=== PATIENT | male | born 1960 | race Caucasian/White ===

== ENCOUNTER 2021-09-30 21:20 | Emergency (ER) | payer OTHER ==
--- OUTSIDE RECORDS SUMMARY | 2021-09-30 21:22 | XMS REPORT | Continuity of Care Document ---
:1960 Author Organization [facility] Address [address] [place] [address] Care Team Providers Name Role Phone GEE KAUFFMAN Attending Clinician Unavailable MAIRA REYNOLDS Attending Clinician Unavailable JASPER REA Attending Clinician Unavailable AKIL DEUTSCH Attending Clinician Unavailable MARIA FOSTER Attending Clinician Unavailable JULIETH ROBERT Attending Clinician Unavailable Problems This patient has no known problems. Allergies, Adverse Reactions, Alerts This patient has no known allergies or adverse reactions. Medications This patient has no known medications. Procedures This patient has no known procedures. Encounters Start End Encounter Admission Attending Care Care Encounter Source Date/Time Date/Time Type Type Clinicians Facility Department ID 2021-09-27 2021-09-27 Outpatient [facility] [id number] [place] 00:00:00 00:00:[address] 2021-09-16 2021-09-16 Outpatient DALY [facility] [id number] [place] 00:00:00 00:00:00 GEE [address] 2021-09-13 2021-09-13 Outpatient [facility] [id number] [place] 00:00:00 00:00:[address] 2021-08-30 2021-08-30 Outpatient [facility] [id number] [place] 00:00:00 00:00:[address] 2021-07-18 2021-07-18 Outpatient RODOLFO [facility] [id number] [place] 00:00:00 00:00:00 MAIRA [address] 2021-06-15 2021-06-15 Outpatient JASPER REA [facility] [id number] [place] 00:00:00 00:00:[address] 2021-05-26 2021-05-26 Outpatient [facility] [id number] [place] 00:00:00 00:00:[address] 2021-05-25 2021-05-25 Outpatient KAUFFMAN, [facility] [id number] [place] 00:00:00 00:00:00 WINDSEN [address] 2021-05-17 2021-05-17 Outpatient KAUFFMAN, [facility] [id number] [place] 00:00:00 00:00:00 WINDSEN [address] 2021-05-16 2021-05-16 Outpatient REYNOLDS, [facility] [id number] [place] 00:00:00 00:00:00 MAIRA [address] 2021-05-10 2021-05-10 Outpatient KAUFFMAN, [facility] [id number] [place] 00:00:00 00:00:00 WINDSEN [address] 2021-04-13 2021-04-13 Outpatient REYNOLDS, [facility] [id number] [place] 00:00:00 00:00:00 MAIRA [address] 2021-02-14 2021-02-14 Outpatient KAUFFMAN, [facility] [id number] [place] 00:00:00 00:00:00 WINDSEN [address] 2021-01-18 2021-01-18 Emergency NOFFSINGER, [facility] [id number] [place] 00:00:00 00:00:00 AKIL [address] 2020-06-08 2020-06-08 Outpatient REYNOLDS, [facility] [id number] [place] 00:00:00 00:00:00 MAIRA [address] 2019-12-15 2019-12-15 Outpatient REYNOLDS, [facility] [id number] [place] 00:00:00 00:00:00 MAIRA [address] 2019-10-27 2019-10-27 Outpatient REYNOLDS, [facility] [id number] [place] 00:00:00 00:00:00 MAIRA [address] 2019-08-20 2019-08-20 Outpatient FOSTER, [facility] [id number] [place] 00:00:00 00:00:00 MARIA [address] 2019-05-27 2019-05-27 Outpatient ROBERT, [facility] [id number] [place] 00:00:00 00:00:00 JULIETH [address] 2019-05-27 2019-05-27 Outpatient ROBERT, [facility] [id number] [place] 00:00:00 00:00:00 JULIETH [address] 2019-04-23 2019-04-23 Outpatient RODOLFO, [facility] [id number] [place] 00:00:00 00:00:00 MAIRA [address] 2019-04-23 2019-04-23 Outpatient RODOLFO [facility] [id number] [place] 00:00:00 00:00:00 MAIRA [address] 2019-03-13 2019-03-13 Outpatient RODOLFO, [facility] [id number] [place] 00:00:00 00:00:00 MAIRA [address] 2019-03-13 2019-03-13 Outpatient RODOLFO [facility] [id number] [place] 00:00:00 00:00:00 MAIRA [address] Results This patient has no known results.
[2021-09-30 22:27] LABS: Absolute Lymphocytes (CBC) 1.7 K/uL (0.7-4.9); Hematocrit 45.4 % (39.6-49.0); Lymphocytes % 9.5 % (15.3-44.8); MPV 8.5 fL (7.6-11.3)
[2021-09-30 22:42] LABS: Albumin 3.6 g/dL (3.4-5.0); Bilirubin Total 0.5 mg/dL (0.2-1.0); Protein, Total 7.4 g/dL (6.4-8.2)
[2021-09-30 22:43] LABS: Potassium 5.4 mmol/L (3.5-5.1)
--- NOTE | 2021-09-30 23:38 | EDPHYS ---
Physician Documentation [facility] Name: Wally Ann Age: 61 yrs Sex: Male : 1960 Arrival Date: 09/30/2021 Time: 21:24 Bed 5 Private MD: ED Physician Christian Landaverde HPI: 09/30 21:24 This 61 yrs old Male presents to ER via EMS with complaints of syncope. ms3 21:24 The patient has experienced syncope, lost consciousness. Onset: The symptoms/episode ms3 began/occurred just prior to arrival. Duration: This was a single episode, that lasted 2 second(s). Associated injury: The patient did not suffer any apparent associated injury. Associated signs and symptoms: Pertinent positives: dizziness, Pertinent negatives: abdominal pain, chest pain, diarrhea, headache. 61-year-old male with past medical history of diabetes, hypertension, hypercholesterolemia presents via EMS for dizziness, sweating, vomiting x1, syncopal episode that lasted 1 to 2 seconds. Patient states he began sweating and he went upstairs and sat in his chair and vomited x1. Patient's states his eyes then rolled back for 1 to 2 seconds. Patient states he did eat a schedule as he was afraid his sugar was low. Patient denies chest pain, patient denies shortness of breath. Patient states he has chronic back pain and his pain is unchanged.. Historical: - Allergies: 21:26 morphine; sm5 - Home Meds: 21:26 Vascepa 1 gram oral cap 2 caps 2 times per day [Active]; venlafaxine 150 mg oral cp24 sm5 [Active]; felodipine 5 mg oral Tb24 1 tab once daily [Active]; metoprolol tartrate 100 mg Oral tab 1 tab once daily [Active]; olmesartan-hydrochlorothiazide 40-12.5 mg oral tab 1 tab once daily [Active]; Humulin R Regular U-100 Insuln 100 unit/mL soln [Active]; rosuvastatin 20 mg oral tab 1 tab once daily [Active]; fenofibrate 200mg oral [Active]; - PMHx: 21:29 Diabetes mellitus; Hypertensive disorder; Hypercholesterolemia; sm5 - PSHx: 21:29 left kidney tumor removal; Cholecystectomy; sm5 - Immunization history:: Client reports receiving the 2nd dose of the Covid vaccine, Flu vaccine is up to date. - Social history:: Smoking status: Patient denies any tobacco usage or history of. ROS: 21:24 Constitutional: Negative for fever, and chills. Eyes: Negative for injury, pain, ms3 redness, and discharge, Neck: Negative for injury, pain, and swelling, Cardiovascular: Negative for chest pain, and palpitations. Respiratory: Negative for shortness of breath, cough, wheezing, and pleuritic chest pain, Abdomen/GI: Negative for abdominal pain, nausea, vomiting, diarrhea, and constipation, Skin: Negative for injury, rash, and discoloration, Neuro: Negative for headache, weakness, numbness, tingling. 21:24 MS/extremity: Positive for Back pain. 21:24 All other systems are negative. Exam: 21:24 Constitutional: This is a well developed, well nourished patient who is awake, alert, ms3 and in no acute distress. Head/Face: Normocephalic, atraumatic. Eyes: Pupils equal round and reactive to light, extra-ocular motions intact. Lids and lashes normal. Conjunctiva and sclera are non-icteric and not injected. Periorbital areas with no swelling, redness, or edema. Neck: Trachea midline, no cervical lymphadenopathy. Supple, full range of motion without nuchal rigidity, or vertebral point tenderness. No Meningismus. Chest/axilla: Normal chest wall appearance and motion. Nontender with no deformity. Cardiovascular: Regular rate and rhythm with a normal S1 and S2. No gallops, murmurs, or rubs. Normal PMI, no JVD. No pulse deficits. Respiratory: Lungs have equal breath sounds bilaterally, clear to auscultation and percussion. No rales, rhonchi or wheezes noted. No increased work of breathing, no retractions or nasal flaring. Abdomen/GI: Soft, non-tender, with normal bowel sounds. No distension or tympany. No guarding or rebound. No evidence of tenderness throughout. Back: No spinal tenderness. No costovertebral tenderness. Full range of motion. Skin: Warm, dry with normal turgor. Normal color with no rashes, no lesions, and no evidence of cellulitis. Neuro: Awake and alert, GCS 15, oriented to person, place, time, and situation. Cranial nerves II-XII grossly intact. Motor strength 5/5 in all extremities. Sensory grossly intact. Cerebellar exam normal. Normal gait. Psych: Awake, alert, with orientation to person, place and time. Behavior, mood, and affect are within normal limits. 21:24 Musculoskeletal/extremity: Extremities: 21:24 Musculoskeletal/extremity: No midline back tenderness, paraspinal mm spasm. 22:17 ECG was reviewed by the Attending Physician. ms3 Vital Signs: 21:24 BP 109 / 66; Pulse 73; Resp 14; Temp 97.5(O); Pulse Ox 95% on R/A; Weight 96.16 kg; sm5 Height 5 ft. 6 in. (167.64 cm); Pain 0/10; 22:26 BP 123 / 70; Pulse 65; Resp 16; Pulse Ox 96% on R/A; sm5 22:59 BP 124 / 71; Pulse 66; Resp 18; Pulse Ox 96% on R/A; st1 23:11 BP 138 / 68; Pulse 68; Resp 16; Pulse Ox 96% on R/A; st1 21:24 Body Mass Index 34.22 (96.16 kg, 167.64 cm) 5 MDM: 21:24 Differential Diagnosis: cardiac arrhythmia, Hypoglycemia vs arrhythmia. Data reviewed: ms3 vital signs, nurses notes, lab test result(s), EKG, radiologic studies. Counseling: I had a detailed discussion with the patient and/or guardian regarding: the historical points, exam findings, and any diagnostic results supporting the discharge/admit diagnosis, lab results, radiology results, the need for outpatient follow up, to return to the emergency department if symptoms worsen or persist or if there are any questions or concerns that arise at home. ED course: Discussed observation with patient and his . Patient declines observation in hospital. Discussed risks of or disability with patient and his . Patient understands accepts risk. Patient is alert and oriented x4, in no apparent distress, nontoxic-appearing, ambulatory in emergency department. Patient to follow-up with his primary care physician on Sunday. She understands and agrees with plan. All questions were answered. Return precautions discussed include worsening symptoms, or any other concerns.. 21:48 Patient medically screened. ms3 09/30 21:47 Order name: CBC with Diff; Complete Time: 22:57 ms3 09/30 21:47 Order name: CPK; Complete Time: 22:57 ms3 09/30 21:47 Order name: Lipase; Complete Time: 22:57 ms3 09/30 21:47 Order name: Magnesium; Complete Time: 22:57 ms3 09/30 21:47 Order name: CMP; Complete Time: 22:57 ms3 09/30 22:57 Order name: Troponin High Sensitivity; Complete Time: 23:30 ms3 09/30 21:47 Order name: EKG; Complete Time: 21:48 ms3 09/30 21:47 Order name: Cardiac monitoring; Complete Time: 21:52 ms3 09/30 21:47 Order name: EKG - Nurse/Tech; Complete Time: 22:24 ms3 09/30 21:47 Order name: IV Saline Lock; Complete Time: 21:52 ms3 09/30 21:47 Order name: Labs collected and sent; Complete Time: 22:24 ms3 09/30 21:47 Order name: NPO; Complete Time: 22:10 ms3 09/30 21:47 Order name: O2 Per Protocol; Complete Time: 22:10 ms3 09/30 21:47 Order name: O2 Sat Monitoring; Complete Time: 22:10 ms3 EC:17 Rate is 62 beats/min. Rhythm is regular. QRS [place] is Normal. Clinical impression: Right ms3 bundle branch block. Interpreted by me. Administered Medications: No medications were administered Disposition Summary: 09/30/21 23:37 Discharge Ordered Location: Home ms3 Problem: new ms3 Symptoms: have improved ms3 Condition: Stable ms3 Diagnosis - Syncope ms3 - Leukocytosis ms3 - renal insufficiency ms3 - Hyperglycemia, unspecified ms3 Followup: ms3 - With: Private Physician - When: 1 - 2 days - Reason: Discharge Instructions: - Discharge Summary Sheet ms3 - Hyperglycemia ms3 - Syncope ms3 Forms: - Medication Reconciliation Form ms3 - Thank You Letter ms3 - Antibiotic Education ms3 - Prescription Opioid Use ms3 Signatures: Dispatcher [employer] Christian Noguera DO DO ms3 Bonita Khoury, RN RN sm5
--- NOTE | 2021-09-30 23:38 | ER ---
Nurse's Notes [facility] Name: Wally Ann Age: 61 yrs Sex: Male : 1960 Arrival Date: 09/30/2021 Time: 21:24 Bed 5 Private MD: Diagnosis: Syncope;Leukocytosis;renal insufficiency;Hyperglycemia, unspecified Presentation: 09/30 21:24 Chief complaint: EMS states: pt started feeling nauseas at home, family witnessed sm5 syncopal episode lasting 30 seconds, denies fall. pt's initial bp for ems was 90/50. ems gave 4mg of zofran, 1000mg of tyenol. pt states he started a keto diet last week and lost 8lbs in 4 days. Coronavirus screen: Vaccine status: Patient reports receiving the 2nd dose of the covid vaccine. Ebola Screen: No symptoms or risks identified at this time. Initial Sepsis Screen: Does the patient meet any 2 criteria? No. Patient's initial sepsis screen is negative. Does the patient have a suspected source of infection? No. Patient's initial sepsis screen is negative. Risk Assessment: Do you want to hurt yourself or someone else? Patient reports no desire to harm self or others. Onset of symptoms was September 30, 2021. 21:24 Method Of Arrival: EMS: [place] [address] 21:24 Acuity: SUNITA 3 sm5 Triage Assessment: 21:31 General: Appears in no apparent distress. Behavior is cooperative, appropriate for age. sm5 Pain: Denies pain. Neuro: No deficits noted. Level of Consciousness is awake, alert, obeys commands, Oriented to person, place, time, situation. Cardiovascular: No deficits noted. Capillary refill < 3 seconds Patient's skin is warm and dry. Respiratory: No deficits noted. Airway is patent Trachea midline Respiratory effort is even, unlabored. GI: Abdomen is round Reports vomiting. Historical: - Allergies: 21:26 morphine; sm5 - Home Meds: 21:26 Vascepa 1 gram oral cap 2 caps 2 times per day [Active]; venlafaxine 150 mg oral cp24 sm5 [Active]; felodipine 5 mg oral Tb24 1 tab once daily [Active]; metoprolol tartrate 100 mg Oral tab 1 tab once daily [Active]; olmesartan-hydrochlorothiazide 40-12.5 mg oral tab 1 tab once daily [Active]; Humulin R Regular U-100 Insuln 100 unit/mL soln [Active]; rosuvastatin 20 mg oral tab 1 tab once daily [Active]; fenofibrate 200mg oral [Active]; - PMHx: 21:29 Diabetes mellitus; Hypertensive disorder; Hypercholesterolemia; sm5 - PSHx: 21:29 left kidney tumor removal; Cholecystectomy; 5 - Immunization history:: Client reports receiving the 2nd dose of the Covid vaccine, Flu vaccine is up to date. - Social history:: Smoking status: Patient denies any tobacco usage or history of. Screenin:30 Abuse screen: Denies threats or abuse. Denies injuries from another. Nutritional [facility] screening: No deficits noted. Tuberculosis screening: No symptoms or risk factors identified. Fall Risk No fall in past 12 months (0 pts). No secondary diagnosis (0 pts). IV access (20 points). Ambulatory Aid- None/Bed Rest/Nurse Assist (0 pts). Gait- Normal/Bed Rest/Wheelchair (0 pts) Mental Status- Oriented to own ability (0 pts). Total Mason Fall Scale indicates No Risk (0-24 pts). Assessment: 21:30 Reassessment: see triage assessment. [facility] 22:26 Reassessment: No changes from previously documented assessment. Patient and/or family [facility] updated on plan of care and expected duration. Pain level reassessed. 23:45 Reassessment: No changes from previously documented assessment. Patient states feeling 5 better. Vital Signs: 21:24 BP 109 / 66; Pulse 73; Resp 14; Temp 97.5(O); Pulse Ox 95% on R/A; Weight 96.16 kg; sm5 Height 5 ft. 6 in. (167.64 cm); Pain 0/10; 22:26 BP 123 / 70; Pulse 65; Resp 16; Pulse Ox 96% on R/A; sm5 22:59 BP 124 / 71; Pulse 66; Resp 18; Pulse Ox 96% on R/A; st1 23:11 BP 138 / 68; Pulse 68; Resp 16; Pulse Ox 96% on R/A; st1 21:24 Body Mass Index 34.22 (96.16 kg, 167.64 cm) [facility] ED Course: 21:24 Patient arrived in ED. sm5 21:26 Triage completed. 5 21:27 Christian Landaverde DO is Attending Physician. ms3 21:30 Arm band placed on right wrist. sm5 21:30 Patient has correct armband on for positive identification. Bed in low position. Call [facility] light in reach. Side rails up X2. fundraising sale representative on. Pulse ox on. NIBP on. 21:52 Bonita Khoury, RN is Primary Nurse. 5 22:20 Maintain EMS IV. Dressing intact. Good blood return noted. Site clean \T\ dry. Gauge \T\ 5 site: 20 R hand. 22:24 CBC with Diff Sent. sm5 22:24 CPK Sent. sm5 22:24 Lipase Sent. 5 22:24 Magnesium Sent. 5 22:27 CMP Sent. 5 23:45 No provider procedures requiring assistance completed. IV discontinued, intact, 5 bleeding controlled, No redness/swelling at site. Pressure dressing applied. Administered Medications: No medications were administered Outcome: 23:37 Discharge ordered by MD. ms3 23:45 Discharged to home ambulatory. 5 23:45 Condition: stable 23:45 Discharge instructions given to patient, family, Instructed on discharge instructions, follow up and referral plans. Demonstrated understanding of instructions, follow-up care. 23:45 Patient left the ED. [facility] Signatures: Christian Landaverde DO DO ms3 Bonita Khoury, RN RN 5 Magalis Garcia, RN RN st1
[2021-10-01 01:31] VITALS: TEMP 97.5
[2021-10-01 01:33] VITALS: O2SAT 96
[2021-10-01 01:35] VITALS: BP 138/68
--- NOTE | 2021-10-04 12:39 | EKG ---
Test Date: 2021-09-30 Test Time: 22:17:48 Credit Adjuster: DANIEL MEASUREMENT RESULTS: Intervals: Rate: 62 PA: 210 QRSD: 158 QT: 468 QTc: 475 [place]: P: 54 PA: 210 QRS: 59 T: 39 INTERPRETIVE STATEMENTS: Sinus rhythm with 1st degree AV block Right bundle branch block Abnormal ECG No previous ECG available for comparison Electronically Signed On 10-04-21 12:33:49 CDT by Oscar Stearns
== END 2021-09-30 23:45 | disposition home or self-care (01) ==
LOC: ER 21:20
DX: R55 Syncope and collapse (principal); D72.829 Elevated white blood cell count, unspecified; N28.9 Disorder of kidney and ureter, unspecified; E11.649 Type 2 diabetes mellitus with hypoglycemia without coma; I10 Essential (primary) hypertension; E78.00 Pure hypercholesterolemia, unspecified; Z88.5 Allergy status to narcotic agent
CPT/HCPCS: 36415; 80053; 82550; 83690; 83735; 84484; 85025; 93005; 99284